=== PATIENT | male | born 2005 | race Caucasian/White ===

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

== ENCOUNTER 2025-07-07 00:04 | Emergency (ER) | payer SELFPAY ==
[~2025-07-07] VITALS: Ht 177.8 cm; Wt 74.8 kg
[~2025-07-07 00:04] MED LIST: Robaxin750 MG PO
[2025-07-07] MEDS ORDERED: OxyCODONE 10/Acetamin 325 TABLET PO ONE (00:45)
[2025-07-07] MEDS ORDERED: RX Prepack 6 Tabs Oxycodone 5mg UD ONE (01:10)
[2025-07-07] MEDS ORDERED: RX Prepack 2 Tabs Ondansetron ODT 4MG UD ONE (01:10)
[2025-07-07] MEDS ORDERED: ONDA4ODT MM ×2 (01:14→10:25)
[2025-07-07] MEDS ORDERED: OXAYDO5 M1 PO ×2 (01:14→10:25)
[2025-07-07] MEDS ORDERED: CYCL10 PO ×2 (01:14→10:25)
[2025-07-07] MEDS ORDERED: FentaNYL Citrate 50 MCG/ML 2 ML Injection IV ONE (04:25)
[2025-07-07 05:15] VITALS: BP 139/89
== END 2025-07-07 05:18 | disposition home or self-care (01) ==
LOC: ER 00:04
DX: S42.401A Unspecified fracture of lower end of right humerus, initial encounter for closed fracture (principal); X58.XXXA Exposure to other specified factors, initial encounter; Z79.899 Other long term (current) drug therapy
CPT/HCPCS: 29105; 73060; 73200; 96374-59; 99284-25; A9270; J3010

== ENCOUNTER 2025-07-16 10:40 | Day surgery (SDC) | payer OTHER ==
[~2025-07-16] VITALS: Ht 177.8 cm; Wt 77.9 kg
[~2025-07-16 10:40] MED LIST changes: +CYCL10 PO; +Lidocaine HCl 2% 10 ML SDA ONE; +ONDA4ODT MM; +OXAYDO5 M1 PO; +Ropivacaine 0.5% HCL/PF 5 MG/ML 30ML Vial ONE
[2025-07-16] MEDS ORDERED: OXYC5 (11:09)
--- NOTE | 2025-07-16 11:11 | NUR ---
07/16/[address] IN ROOM TO DISCUSS PROCEDURE WITH PATIENT. LJ LEWIS IN THE ROOM WELL.
[2025-07-16] MEDS ORDERED: CeFAZolin Sodium 2,000 MG VIAL ONE (11:22)
[2025-07-16] MEDS ORDERED: Dexamethasone Sod Phos 10 MG/ML 1ML VIAL ONE (11:41)
[2025-07-16] MEDS ORDERED: Ondansetron HCl 2 MG / ML 2ML Vial ONE (11:41)
[2025-07-16] MEDS ORDERED: FentaNYL Citrate 50 MCG/ML 2 ML Injection ONE ×2 (11:46→15:03)
[2025-07-16] MEDS ORDERED: Midazolam HCl 1MG / ML 2ML Vial ONE ×2 (11:47→15:04)
[2025-07-16] MEDS ORDERED: Ketorolac Tromethamine 30mg Vial ONE (12:30)
[2025-07-16] MEDS ORDERED: Tranexamic Acid 100 ML IV ONE (13:32)
[2025-07-16 15:40] VITALS: BP 141/93
--- NOTE | 2025-07-16 15:42 | NUR ---
07/16/25 1542 Aga Murillo NERVE BLOCK IN PACU ON RIGHT ARM. START 1514. END AT 1524. PT TOLERATED WELL.
== END 2025-07-16 16:07 | disposition home or self-care (01) ==
LOC: ORSCSDS 10:40
PROVIDERS: Orthopaedic Surgery
PROC: 0PSF04Z Reposition Right Humeral Shaft with Internal Fixation Device, Open Approach (ICD-10-PCS; principal; 2025-07-16 12:00)
DX: S42.421A Displaced comminuted supracondylar fracture without intercondylar fracture of right humerus, initial encounter for closed fracture (principal); Y93.72 Activity, wrestling; Z87.891 Personal history of nicotine dependence
CPT/HCPCS: C1713; J0690; J1100; J1885; J2003; J2250; J2405; J2704; J2795; J3010; J7120